=== PATIENT | male | born 1960 | race Caucasian/White ===

== ENCOUNTER 2017-12-05 12:47 | Emergency (ER) | payer SELFPAY ==
[~2017-12-05] VITALS: Ht 175.3 cm; Wt 81.6 kg
[~2017-12-05 12:47] MED LIST: TAMS0.4C25 PO
[2017-12-05] MEDS ORDERED: CHOLESTEROL MED (13:00)
--- NOTE | 2017-12-05 13:10 | ER Report ---
History and Physical Time Seen By MD: 13:00 Hx. of Stated Complaint: PT HAS A PROBELM WITH ALCOHOL, NOW HIS STOMACH HURTS AND HE IS SHAKING. DRINKS AT LEAST 1/5TH DAILY AND HAS NOT HAD ANY SINCE LAST NIGHT 2200. HAS BEEN DRINKING FOR 20-30 YRS HPI/ROS CHIEF COMPLAINT: Alcohol abuse HISTORY OF PRESENT ILLNESS: 57-year-old male who presents emergency Department today with a long history of many years of alcohol abuse as he wants to quit wants detoxification. 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 Patient has tried to use alcoholic no success asking for "3 days in the hospital to get right up and that I'll be fine". Patient has mild non- localizing abdominal discomfort patient denies chest pain, fever chills or additional complaints notices he drinks about a 5th of alcohol daily patient is unemployed. He still has money for alcohol and cigarettes he says he possibly from people to do that he has no local family nearby otherwise unremarkable REVIEW OF SYSTEMS: Respiratory: No cough, no dyspnea. Cardiovascular: No chest pain, no palpitations. Gastrointestinal: No vomiting nonspecific abdominal discomfort Musculoskeletal: No back pain. Remainder of the 14 system rev: Yes Allergies: Coded Allergies: No Known Drug Allergies (Unverified , 12/05/17) Home Meds Reported Medications [Cholesterol Med] No Conflict Check 12/05/17 Reviewed Nurses Notes: Yes Old Medical Records Reviewed: Yes Hx Substance Use Disorder: No Hx Alcohol Use: Yes (/ CLIFF FOR 30 DAYS) Constitutional Vital Sign - Last 24 Hours 12/05/17 12:51 Temp 97.5 Pulse 97 Resp 20 B/P (MAP) 180/114 Pulse Ox 94 O2 Delivery Room Air Physical Exam General Appearance: [The patient is alert, has no immediate need for airway protection and no current signs of toxicity.] [ ] Eyes: Pupils equal and round no injection. Respiratory: Chest is non tender, lungs are clear to auscultation. Cardiac: regular rate and rhythm [ ] Gastrointestinal: Abdomen is soft and non tender, no masses, bowel sounds normal. Musculoskeletal: Neck: Neck is supple and non tender. Extremities have full range of motion and are non tender. Skin: No rashes or lesions. [ ] DIFFERENTIAL DIAGNOSIS: After history and physical exam differential diagnosis was considered for alcohol abuse alcohol use and abuse detoxification delirium tremens Medical Decision Making Data Points Result Diagram: 12/05/17 1258 12/05/17 1258 Laboratory Hematology Test 12/05/17 12:58 Red Blood Count 4.97 M/uL (4.00-5.60) Mean Corpuscular Volume 96.1 fL (80.0-96.0) Mean Corpuscular Hemoglobin 33.0 pg (26.0-33.0) Mean Corpuscular Hemoglobin Concent 34.3 g/dL (32.0-36.0) Red Cell Distribution Width 13.6 % (11.5-14.5) Mean Platelet Volume 8.2 fL (7.2-11.1) Neutrophils (%) (Auto) 70.6 % (39.4-72.5) Lymphocytes (%) (Auto) 18.0 % (17.6-49.6) Monocytes (%) (Auto) 10.1 % (4.1-12.4) Eosinophils (%) (Auto) 0.4 % (0.4-6.7) Basophils (%) (Auto) 0.9 % (0.3-1.4) Nucleated RBC Relative Count (auto) 0.0 /100WBC Neutrophils # (Auto) 5.5 K/uL (2.0-7.4) Lymphocytes # (Auto) 1.4 K/uL (1.3-3.6) Monocytes # (Auto) 0.8 K/uL (0.3-1.0) Eosinophils # (Auto) 0.0 K/uL (0.0-0.5) Basophils # (Auto) 0.1 K/uL (0.0-0.1) Nucleated RBC Absolute Count (auto) 0.00 K/uL Sodium Level 137 mmol/L (137-145) Potassium Level 3.8 mmol/L (3.5-5.0) Chloride Level 100 mmol/L (98-107) Carbon Dioxide Level 26 mmol/L (22-30) Blood Urea Nitrogen 12 mg/dl (9-21) Creatinine 0.80 mg/dl (0.66-1.25) Glomerular Filtration Rate Calc > 60.0 Random Glucose 101 mg/dl (75-110) Calcium Level 9.5 mg/dl (8.4-10.2) Magnesium Level 1.6 mg/dl (1.7-2.2) Total Bilirubin 1.2 mg/dl (0.2-1.3) Aspartate Amino Transf (AST/SGOT) 45 U/L (0-35) Alanine Aminotransferase (ALT/SGPT) 93 U/L (0-56) Alkaline Phosphatase 129 U/L (0-126) Total Protein 7.9 gm/dl (6.3-8.2) Albumin 4.1 g/dl (3.5-5.0) Lipase 102 U/L (23-300) Salicylates Level < 10 mg/L Salicylate Last Dose Date unknown Acetaminophen Level < 10 ug/ml Serum Alcohol < 10 mg/dl Chemistry Test 12/05/17 12:58 White Blood Count 7.8 k/uL (4.5-11.0) Red Blood Count 4.97 M/uL (4.00-5.60) Hemoglobin 16.4 g/dL (14.0-18.0) Hematocrit 47.7 % (42.0-52.0) Mean Corpuscular Volume 96.1 fL (80.0-96.0) Mean Corpuscular Hemoglobin 33.0 pg (26.0-33.0) Mean Corpuscular Hemoglobin Concent 34.3 g/dL (32.0-36.0) Red Cell Distribution Width 13.6 % (11.5-14.5) Platelet Count 259 K/uL (150-450) Mean Platelet Volume 8.2 fL (7.2-11.1) Neutrophils (%) (Auto) 70.6 % (39.4-72.5) Lymphocytes (%) (Auto) 18.0 % (17.6-49.6) Monocytes (%) (Auto) 10.1 % (4.1-12.4) Eosinophils (%) (Auto) 0.4 % (0.4-6.7) Basophils (%) (Auto) 0.9 % (0.3-1.4) Nucleated RBC Relative Count (auto) 0.0 /100WBC Neutrophils # (Auto) 5.5 K/uL (2.0-7.4) Lymphocytes # (Auto) 1.4 K/uL (1.3-3.6) Monocytes # (Auto) 0.8 K/uL (0.3-1.0) Eosinophils # (Auto) 0.0 K/uL (0.0-0.5) Basophils # (Auto) 0.1 K/uL (0.0-0.1) Nucleated RBC Absolute Count (auto) 0.00 K/uL Glomerular Filtration Rate Calc > 60.0 Calcium Level 9.5 mg/dl (8.4-10.2) Magnesium Level 1.6 mg/dl (1.7-2.2) Total Bilirubin 1.2 mg/dl (0.2-1.3) Aspartate Amino Transf (AST/SGOT) 45 U/L (0-35) Alanine Aminotransferase (ALT/SGPT) 93 U/L (0-56) Alkaline Phosphatase 129 U/L (0-126) Total Protein 7.9 gm/dl (6.3-8.2) Albumin 4.1 g/dl (3.5-5.0) Lipase 102 U/L (23-300) Salicylates Level < 10 mg/L Salicylate Last Dose Date unknown Acetaminophen Level < 10 ug/ml Serum Alcohol < 10 mg/dl Toxicology Test 12/05/17 12:58 Salicylates Level < 10 mg/L Salicylate Last Dose Date unknown Acetaminophen Level < 10 ug/ml Serum Alcohol < 10 mg/dl ED Course/Re-evaluation ED Course ED clinical course 57 year old male long history of sustained alcohol abuse is here for alcohol detoxification his alcohol level is negative he is to be admitted to our behavioral health for EtOH intoxication withdrawal and abuse Decision to Disposition Date: Dec 05, 2017 Decision to Disposition Time: 13:28 Depart Departure Latest Vital Signs Vital Signs Date Time Temp Pulse Resp B/P (MAP) Pulse Ox O2 Delivery O2 Flow Rate FiO2 12/05/17 12:51 97.5 97 20 180/114 94 Room Air Impression: Primary Impression: Alcohol abuse Condition: Improved Disposition: XFER TO [facility] LILIYA PÉREZ MD Dec 05, 2017 13:10
[2017-12-05 13:11] LABS: PLATELET COUNT, AUTOMATED 259 K/uL (150-450)
--- NOTE | 2017-12-05 13:12 | EKG ---
FACILITY: [facility] PATIENT NAME: BEATRIZ PERALTA : [id number] MR: [id number] V: [id number] EXAM DATE: ORDERING PHYSICIAN: LILIYA PÉREZ TECHNOLOGIST: MARY Test Reason : ETOH Blood Pressure : / mmHG Vent. Rate : 090 BPM Atrial Rate : 090 BPM P-R Int : 172 ms QRS Dur : 092 ms QT Int : 372 ms P-R-T Axes : 033 008 047 degrees QTc Int : 455 ms Normal sinus rhythm Normal ECG No previous ECGs available Confirmed by TOM RIOS ([id number]) on 12/05/2017 3:13:52 PM Referred By: GEORGE Confirmed By:TOM RIOS
[2017-12-05] MEDS ORDERED: MULTIVITAMINS(*) 10 ML VIAL 10 ML, THIAMINE HCL(*) 200 MG/2 ML IN 100 MG, FOLIC ACID(*)... IV ONE (13:40)
[2017-12-05] MEDS ORDERED: MAGNESIUM SUL 50% 1GM/2ML VIAL ONE (13:44)
[2017-12-05] MEDS ORDERED: THIAMINE HCL 200 MG/2 ML INJ ONE (13:44)
[2017-12-05 15:00] VITALS: BP 141/85
== END 2017-12-05 15:19 ==
LOC: ER 13:00
DX: F10.20 Alcohol dependence, uncomplicated (principal); R10.9 Unspecified abdominal pain
CPT/HCPCS: 80320; 80329; 81001; 83690; 83735; 84443; 85025; 93005; 96365; 99284; J3411; J3475; J7030; 82040; 82247; 82310; 82374; 82435; 82565; 82947; 84075; 84132; 84155; 84295; 84450; 84460; 84520

== ENCOUNTER 2017-12-05 14:22 | Inpatient (IN) | payer SELFPAY ==
[~2017-12-05] VITALS: Ht 175.3 cm; Wt 81.6 kg
[~2017-12-05 14:22] MED LIST changes: +CHOLESTEROL MED
[2017-12-05] MEDS ORDERED: MAG HYD/AL HYD/SIMETH 30ML UDC PO PRN (15:35)
[2017-12-05] MEDS ORDERED: NICOTINE INH SYSTEM 10 MG/INH INH PRN (15:35)
[2017-12-05] MEDS ORDERED: NICOTINE CARTRIDGE 1 EA PO PRN (15:35)
[2017-12-05] MEDS: DIAZEPAM 10 MG TAB PO PRN ×5 (15:41→23:30)
[2017-12-05 15:45] VITALS: BP 157/91
[2017-12-05] MEDS ORDERED: INFLUENZA VIRUS VAC 0.5 ML SYR IM ONLY ONE (18:00)
[2017-12-05 21:39] VITALS: BP 144/93
[2017-12-05 22:30] VITALS: BP 148/100
[2017-12-06] MEDS: DIAZEPAM 10 MG TAB PO PRN ×2 (00:41→05:35)
[2017-12-06 05:20] VITALS: BP 124/85
[2017-12-06 06:21] LABS: PLATELET COUNT, AUTOMATED 196 K/uL (150-450)
[2017-12-06] MEDS: MULTIVITAMINS PO SCH (08:30)
[2017-12-06] MEDS: THIAMINE HCL 100 MG TAB PO SCH (08:30)
[2017-12-06] MEDS: FOLIC ACID 1 MG TAB PO SCH (08:30)
[2017-12-06 09:00] VITALS: BP 110/58
[2017-12-06 13:25] VITALS: BP 126/86
[2017-12-06 17:05] VITALS: BP 130/90
--- NOTE | 2017-12-06 17:25 | HISTORY AND PHYSICAL ---
DATE OF ADMISSION: December 05, 2017 Patient was seen on December 06, 2017 for initial interview at approximately 0930 hours. PRESENTING PROBLEM CHIEF COMPLAINT Alcohol withdrawal. HISTORY OF PRESENT ILLNESS This is a very pleasant 57-year-old male who reports to the ER on a voluntary basis, encouraged by his son for alcohol withdrawal. Patient reports, "I am tired of feeling the way I have been feeling," in regard to why he wants to quit drinking now. Patient reports he has been drinking a fifth or more a day of hard liquor for quite some time. The patient does report three months ago having a period of abstinence for roughly two months. Patient reports specific stressors in his life include "just moving here." Patient arrived in [place] less than a month ago from [place]. Patient is believed to be living in a hotel, however, patient reports he has been sharing an apartment. Patient denying any other symptoms of psychiatric concern. MENTAL HEALTH HISTORY Patient has never been in an inpatient setting for psychiatric causes, including withdrawal, and patient has never attended a residential treatment program. Patient as gone to in the past. He has not engaged in any outpatient treatment and never has according to the patient. Patient has never been on psychiatric meds, and patient denies history of suicide attempt. FAMILY PSYCHIATRIC HISTORY Patient's son suffers from alcoholism. Patient reports both of his parents drank heavily and "all his siblings" suffer from drug and alcohol use. Patient denies any other significant psychiatric concerns in the family, denies a family history of suicide. PAST MEDICAL HISTORY Patient has some voiding difficulty, likely associated with benign prostatic hypertrophy. Patient has shown up in the ER on two occasions for this, but has not filled Flomax that was originally prescribed in the ER. Patient other than that reports overall good health. He may have a pre-diabetic condition in the past as well. Further evaluation is required. ALLERGIES Patient has no allergies. CURRENT MEDICATIONS Not on any medications currently. SOCIAL HISTORY Patient born in [place], [place], raised in [place] Parents were at the time of his . They are now. Patient reports an okay childhood overall with no abuse. Patient had seven brothers, two sisters. Patient did not graduate from high school, did not obtain a GED. Patient has never been in the . He has been times one and , has two grown children. Patient has no significant other currently, and patient reports "sharing an apartment" currently, although patient again is believed to have been living alone in a hotel right before coming into the emergency room. 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 He is not currently working. LEGAL HISTORY Significant for a DUI many years ago, around 1993. Patient denying any other current legal stressors. Per patient's son, he may have some outstanding fines to be paid to the court house for unknown cause. SUBSTANCE ABUSE HISTORY Patient reports alcohol is his main problem, and no other substances are believed to play any significant role in this patient's current state. PHYSICAL EXAMINATION GENERAL: Please see emergency room note. Notable for a 57-year-old male in active withdrawal at the time of admission. VITAL SIGNS: Temperature 97.5, pulse 97, respiratory rate 20, blood pressure 180/114, and pulse oximetry 94 on room air. LABORATORY DATA CBC notable for MCV elevated at 96.1, otherwise unremarkable. CMP notable for magnesium slightly low at 1.6, AST elevated at 45, ALT elevated at 93, total bilirubin normal at 1.2 and alkaline phosphatase 129 and elevated, TSH 4.03, lipase in normal range. Urinalysis unremarkable overall. Negative for any serum alcohol. Toxicology screen positive for benzodiazepines on December 05, 2017 at 1845 hours. MENTAL STATUS EXAMINATION GENERAL APPEARANCE, BEHAVIOR AND ATTITUDE: This is a cooperative 57-year-old male, making good eye contact. No psychomotor agitation or retardation noted. Patient actively being treated for alcohol withdrawal. No periods of tearfulness. SPEECH: Within normal limits, regular rate, rhythm volume and tone. MOOD: Described as okay. AFFECT: Minimally constricted, but mood congruent overall. THOUGHT PROCESSES: Appear goal directed and logical. No loose associations or flight of ideas. THOUGHT CONTENT: Free of auditory or visual hallucinations, ideas of reference , thought broadcastings, delusions, obsessions, compulsions. Patient adamantly denying suicidal or homicidal ideation. SENSORIUM: Clear. COGNITION: Alert and oriented to person, place, time and situation. MEMORY: Immediate, recent and remote estimated intact. INTELLIGENCE: Average based on interview. INSIGHT AND JUDGMENT: Considered grossly intact in the absence of alcohol use. Patient presenting voluntarily for treatment. ASSESSMENT This is a very cooperative, polite 57-year-old male who has not been on the [facility] floor before for any treatment of alcohol withdrawal. Patient presenting now stating he is tired of drinking. Will treat alcohol withdrawal to completion via [facility] protocol. Will inquire into positive benzodiazepine screen on this patient as well, and we will work on long-term abstinence plan. DIAGNOSES PER DSM-V Alcohol use disorder severe. Alcohol withdrawal. Social stressors associated with alcohol use disorder, limited finances and unemployment PLAN 1. Admit to the unit. 2. Necessary precautions to be implemented. 3. Patient will participate in individual and group therapy. 4. Medications to be administered, titrated accordingly including diazepam per [facility] protocol. 5. Collateral information to be obtained as necessary. 6. Estimated length of stay three to five days. MTDD
[2017-12-06 21:07] VITALS: BP 145/97
[2017-12-07 06:42] VITALS: BP 129/90
[2017-12-07 08:23] VITALS: BP 110/78
[2017-12-07] MEDS: FOLIC ACID 1 MG TAB PO SCH (08:33)
[2017-12-07] MEDS: THIAMINE HCL 100 MG TAB PO SCH (08:33)
[2017-12-07] MEDS: TAMSULOSIN HCL 0.4 MG CAP PO SCH (08:33)
[2017-12-07] MEDS: MULTIVITAMINS PO SCH (08:33)
--- NOTE | 2017-12-07 10:55 | [facility] Progress Note ---
[facility] - Subjective Progress Notes Subjective Patient doing well today, mood improving, alcohol withdrawal treatment ongoing. Some concerns with insomnia, but denies any other current problems. Appetite good, and intact. Patient continues to verbalize desire to go to rehab. PPD placed will continue treatment. Patient will likely be ready for discharge to rehab early next week. No other concerns. Suicidal Ideation: None Homicidal Ideation: None [facility] - Objective Mental Status Exam General Appearance: Casual, Well Groomed, Good Eye Contact, Cooperative, Polite , Good Interaction, No Psychomotor Agitation, No Psychomotor Retardation, No Bizarre Mannerisms, No Tics Speech: Clear, Spontaneous, Normal Rate, Normal Rhythm, Normal Volume, Normal Tone Mood: Euthymic Affect: Full and Appropriate, Calm, Anxious (some) Thought Process: Organized, Logical, Goal Directed, No Loose Associations, No Flight of Ideas Thought Content: No Suicidal Ideation, No Homicidal Ideation, No Delusions, No Auditory Halllucinations, No Visual Hallucinations, No Thought Broadcasting, No Ideas of Reference, No Obsessions, No Compulsions Sensorium: Clear Cognition: Alert & Oriented-Person, Alert & Oriented-Place, Alert & Oriented- Time Memory: Immediate, Recent, Remote Intelligence: Average Insight Judgment: Fair (improving in absence of alcohol.) Result Diagram: 12/06/1750 12/06/17 0550 [facility] Assessment and Plan [id number] Encounter Date: Dec 07, 2017 [id number] Encounter Time: 11:00 [facility] Plan: Necessary Precautions, Individual/Group Therapy, Admin/Titrate Meds, Educate Patient Tobacco Medications: Not Appropriate Condition Problems: (1) Alcohol withdrawal Status: Acute (2) Alcohol use disorder, severe, dependence Status: Chronic Condition 1. continue treatment. 2. rehab next week. Problem Qualifiers (1) Alcohol withdrawal: Complication of substance-induced condition: uncomplicated Qualified Codes: F10.230 - Alcohol dependence with withdrawal, uncomplicated BEATRIZ KANG MD Dec 07, 2017 10:54
[2017-12-07 12:55] VITALS: BP 124/92
[2017-12-07] MEDS: DIAZEPAM 10 MG TAB PO PRN ×2 (12:59→21:14)
[2017-12-07 17:05] VITALS: BP 112/88
[2017-12-07 21:00] VITALS: BP 125/75
[2017-12-08 06:42] VITALS: BP 109/87
[2017-12-08] MEDS: MULTIVITAMINS PO SCH (08:09)
[2017-12-08] MEDS: THIAMINE HCL 100 MG TAB PO SCH (08:09)
[2017-12-08] MEDS: FOLIC ACID 1 MG TAB PO SCH (08:09)
[2017-12-08] MEDS: TAMSULOSIN HCL 0.4 MG CAP PO SCH (08:09)
[2017-12-08] MEDS ORDERED: DIAZEPAM 10 MG TAB PO ONE (10:45)
--- NOTE | 2017-12-08 11:07 | BHS Progress Note ---
[facility] - Subjective Progress Notes Subjective "I'm doing a lot better." Slept well last night Denies bleeding with last void Depression, anxiety, anger minimal Irritable with interviewing Eating and drinking well Needs to be encouraged to stay out of bed daytime hours Has completed wellness and recovery plan Agrees with residential treatment option Suicidal Ideation: None Homicidal Ideation: None [facility] - Objective Physical Exam Vital Signs Vital Signs Date Time Temp Pulse Resp B/P (MAP) Pulse Ox O2 Delivery O2 Flow Rate FiO2 12/08/17 06:42 98.8 96 109/87 (94) 91 Room Air 12/07/17 21:00 18 Allergies Coded Allergies No Known Drug Allergies (Unverified12/05/17) Muscle Strength and Tone: WNL Gait and Station: Steady [facility] Medications Reviewed: Benefits of Medication, Risks Allergies Reviewed: Yes Mental Status Exam General Appearance: Casual, Well Groomed, Good Eye Contact, Cooperative, Polite , Good Interaction, No Psychomotor Agitation, No Psychomotor Retardation, No Bizarre Mannerisms, No Tics Speech: Clear, Spontaneous, Normal Rate, Normal Rhythm, Normal Volume, Normal Tone Mood: No Euthymic (irritable), Other Affect: Full and Appropriate, Calm, No Anxious (some) Thought Process: Organized, Logical, Goal Directed, No Loose Associations, No Flight of Ideas Thought Content: No Suicidal Ideation, No Homicidal Ideation, No Delusions, No Auditory Halllucinations, No Visual Hallucinations, No Thought Broadcasting, No Ideas of Reference, No Obsessions, No Compulsions Sensorium: Clear Cognition: Alert & Oriented-Person, Alert & Oriented-Place, Alert & Oriented- Time Memory: Immediate, Recent, Remote Intelligence: Average Insight Judgment: Fair (improving in absence of alcohol.) Result Diagram: 12/06/17 0550 12/06/17 0550 Lab Vital Signs Date Time Temp Pulse Resp B/P (MAP) Pulse Ox O2 Delivery O2 Flow Rate FiO2 12/08/17 06:42 98.8 96 109/87 (94) 91 Room Air 12/07/17 21:00 18 Allergies Coded Allergies No Known Drug Allergies (Unverified12/05/17) [facility] Assessment and Plan [id number] Encounter Date: Dec 08, 2017 [id number] Encounter Time: 11:06 [facility] Plan: Necessary Precautions, Individual/Group Therapy, Admin/Titrate Meds, Educate Patient Tobacco Medications: Not Appropriate Condition Problems: (1) Alcohol use disorder, severe, dependence Status: Chronic Condition Continue current medications and treatment Ongoing direction towards residential treatment program Denies withdrawal symptoms, continue monitoring Vital Signs Date Time Temp Pulse Resp B/P (MAP) Pulse Ox O2 Delivery O2 Flow Rate FiO2 12/08/17 06:42 98.8 96 109/87 (94) 91 Room Air 12/07/17 21:00 18 Allergies Coded Allergies No Known Drug Allergies (Unverified12/05/17 KATHRYN BOB NP Dec 08, 2017 11:07
[2017-12-08 13:00] VITALS: BP 108/72
[2017-12-08 16:45] VITALS: BP 112/60
[2017-12-08 23:24] VITALS: BP 106/68
[2017-12-09] MEDS: FOLIC ACID 1 MG TAB PO SCH (08:29)
[2017-12-09] MEDS: TAMSULOSIN HCL 0.4 MG CAP PO SCH (08:29)
[2017-12-09] MEDS: MULTIVITAMINS PO SCH (08:29)
[2017-12-09] MEDS: THIAMINE HCL 100 MG TAB PO SCH (08:29)
--- NOTE | 2017-12-09 10:30 | B[facility] Progress Note ---
[facility] - Subjective Progress Notes Subjective "I'm doing good." Denies urge to use, agrees with residential treatment program Denies depression, anxiety Sleeping, eating well, continuous pulse oximetry tonight Suicidal Ideation: None Homicidal Ideation: None [facility] - Objective Physical Exam Vital Signs Vital Signs Date Time Temp Pulse Resp B/P (MAP) Pulse Ox O2 Delivery O2 Flow Rate FiO2 12/08/17 23:24 97.9 105 16 106/68 (81) 90 Room Air Allergies Coded Allergies No Known Drug Allergies (Unverified12/05/17) Muscle Strength and Tone: WNL Gait and Station: Steady [facility] Medications Reviewed: Benefits of Medication, Risks Allergies Reviewed: Yes Mental Status Exam General Appearance: Casual, Well Groomed, Good Eye Contact, Cooperative, Polite , Good Interaction, No Psychomotor Agitation, No Psychomotor Retardation, No Bizarre Mannerisms, No Tics Speech: Clear, Spontaneous, Normal Rate, Normal Rhythm, Normal Volume, Normal Tone Mood: Euthymic, No Other Affect: Full and Appropriate, Calm, No Anxious Thought Process: Organized, Logical, Goal Directed, No Loose Associations, No Flight of Ideas Thought Content: No Suicidal Ideation, No Homicidal Ideation, No Delusions, No Auditory Halllucinations, No Visual Hallucinations, No Thought Broadcasting, No Ideas of Reference, No Obsessions, No Compulsions Sensorium: Clear Cognition: Alert & Oriented-Person, Alert & Oriented-Place, Alert & Oriented- Time Memory: Immediate, Recent, Remote Intelligence: Average Insight Judgment: Fair (improving in absence of alcohol.) Result Diagram: 12/06/17 0550 12/06/17 0550 Microbiology Vital Signs Date Time Temp Pulse Resp B/P (MAP) Pulse Ox O2 Delivery O2 Flow Rate FiO2 12/08/17 23:24 97.9 105 16 106/68 (81) 90 Room Air S Assessment and Plan [id number] Encounter Date: Dec 09, 2017 [id number] Encounter Time: 11:03 S Plan: Necessary Precautions, Individual/Group Therapy, Admin/Titrate Meds, Educate Patient Tobacco Medications: Not Appropriate Condition Problems: (1) Alcohol use disorder, severe, dependence Status: Chronic Condition Continue current medication and treatment Ongoing work towards residential treatment program acceptance KATHRYN BOB NP Dec 09, 2017 10:30
[2017-12-09 12:30] VITALS: BP 106/60
[2017-12-09 19:23] VITALS: BP 112/68
[2017-12-10 06:31] VITALS: BP 109/80
[2017-12-10] MEDS: THIAMINE HCL 100 MG TAB PO SCH (08:08)
[2017-12-10] MEDS: MULTIVITAMINS PO SCH (08:08)
[2017-12-10] MEDS: TAMSULOSIN HCL 0.4 MG CAP PO SCH (08:08)
[2017-12-10] MEDS: FOLIC ACID 1 MG TAB PO SCH (08:08)
[2017-12-10] MEDS ORDERED: MULT-859 PO (10:38)
[2017-12-10] MEDS ORDERED: TAMS0.4C25 PO (10:38)
[2017-12-10] MEDS ORDERED: NIC10R INH (10:39)
--- NOTE | 2017-12-11 17:57 | DISCHARGE SUMMARY ---
This patient was seen for this discharge summary approximately 1000 hours on the morning of December 10, 2017. FINAL DIAGNOSES PER DSM-V Alcohol use disorder severe. Alcohol withdrawal, considered complete. Social stressors related to alcohol use including employment, financial barriers. Patient known to have a supportive relationship with his son. REASON FOR ADMISSION This is a 57-year-old male who was admitted voluntarily through the emergency room for alcohol withdrawal. Patient initially verbalizing the desire to enter residential rehab. Agreements were made, patient later changing his mind, stating he needs to go home to work. Patient was very cooperative, polite throughout his stay. Alcohol withdrawal was treated to completion via diazepam per [facility] protocol. Patient's alcohol withdrawal was considered moderate-to- severe in nature. Patient experienced no delirium during withdrawal. Patient again interacting well with his son throughout his stay, a very supportive relationship, and patient was discharged to home. PHYSICAL EXAMINATION: GENERAL: Please see emergency room note. Notable for a 57-year-old male in no acute distress. VITAL SIGNS: At the time of admission included a temperature of 97.5, pulse 97 , respiratory rate 20, blood pressure 180/114, pulse oximetry 94 on room air. At the time of discharge vital signs indicate a temperature of 98.3, pulse 85, respiratory rate 16, blood pressure 109/80, pulse oximetry 91 on room air. LABORATORY DATA At the time of admission CBC was otherwise unremarkable. MCV slightly elevated at 96.1. Chemistry panel notable for a magnesium low at 1.6, AST elevated at 45 , ALT elevated at 93, alkaline phosphatase elevated at 129. Total bilirubin 1.2 , in normal range, TSH 4.03, lipase of 102. Urinalysis unremarkable. Toxicology screen negative for any serum alcohol on admission. PSA drawn on the Behavioral Health Unit indicated 4.24. PPD was negative as well. MENTAL STATUS EXAMINATION AT THE TIME OF DISCHARGE GENERAL APPEARANCE, BEHAVIOR AND ATTITUDE: This is a well-groomed, cooperative 57-year-old male who appears stated age. No psychomotor agitation or retardation. No bizarre mannerisms or tics. Patient nontearful, making good eye contact. SPEECH: Within normal limits, regular rate, rhythm volume and tone. MOOD: Described as good. AFFECT: Full and bright. THOUGHT PROCESSES: Logical, goal directed. No loose associations or flight of ideas. THOUGHT CONTENT: Free of auditory or visual hallucinations, ideas of reference , thought broadcastings, delusions, obsessions, compulsions. Negative for any suicidal or homicidal ideation. SENSORIUM: Clear. COGNITION: Alert and oriented to person, place, time and situation. MEMORY: Immediate, recent and remote estimated intact. INTELLIGENCE: Average based on interview. INSIGHT AND JUDGMENT: Considered grossly intact in the absence of alcohol use. RESULTS OF TESTING IMAGING: None. LABORATORY DATA: See above. CONSULTATIONS: None. TREATMENT Patient received medications, participated in individual and group therapy. HOSPITAL COURSE Patient's alcohol withdrawal was treated to completion via the [facility] protocol with diazepam. Patient was also started on Flomax 0.4 mg p.o. q.a.m. with good results for some urinary retention. Patient continued to interact very well with staff and other residents on the Behavioral Health floor until alcohol withdrawal was complete. Patient declining to go to rehab for alcohol use disorder severe in nature at this time. CONDITION OF PATIENT ON DISCHARGE Stable. Considered minimal risk to himself or others and appropriate for outpatient care in the absence of alcohol use. DISPOSITION Patient discharged to home. Patient reported he would follow up with AA and obtain a sponsor. He would continue to consider residential treatment. Patient would remain on Flomax 0.4 mg p.o. q.a.m., multivitamin with minerals daily, and patient would follow up with urologist for elevated PSA. Risks, benefits and alternatives of the above discharge plan were discussed. Informed consent was given to proceed with above discharge plan by this cooperative patient, and patient's son aware of discharge plan as well. JHONY
== END 2017-12-10 11:21 | disposition home or self-care (01) | DRG 897 ==
LOC: BHS 14:22
PROVIDERS: ADMIT Psychiatry & Neurology Psychiatry; ATTEND Psychiatry & Neurology Psychiatry
DX: F10.230 Alcohol dependence with withdrawal, uncomplicated (principal); N40.1 Benign prostatic hyperplasia with lower urinary tract symptoms; R33.8 Other retention of urine; Y90.0 Blood alcohol level of less than 20 mg/100 ml; Z81.1 Family history of alcohol abuse and dependence; Z81.3 Family history of other psychoactive substance abuse and dependence; Z73.3 Stress, not elsewhere classified; Z23 Encounter for immunization
CPT/HCPCS: 36415; 80305; 82040; 82247; 82310; 82374; 82435; 82565; 82947; 83735; 84075; 84132; 84153; 84155; 84295; 84450; 84460; 84520; 85025; 86580; 90674; 90853